=== PATIENT | female | born 1995 | race Caucasian/White ===

== ENCOUNTER → 2017-01-19 | Emergency (ER) | payer OTHER ==
[~2017-01-19] VITALS: Ht 149.9 cm; Wt 38.6 kg
[~2017-01-19] MED LIST: DEXAMETHASONE PF 10 MG/ML (DECADRON) VIAL IM STA; DOXY100T19 PO; HYDR-3812 PO; PNV1COMB25 PO
--- NOTE | 2017-01-19 06:59 | ED EENT ---
History of Present Illness General Chief Complaint: Oral/Throat Problems Stated Complaint: SWOLLEN & SORE THROAT,COUGHING, Nursing Triage Note: Pt c/o sore throat, afebrile. Source: patient Exam Limitations: no limitations History of Present Illness Time seen by provider: 06:30 Initial Comments Here with report of sore throat for the last 3 days and much worse this morning. She states she woke up this morning and it was hurting real bad. Her doctor's office is not open on the weekends and she came here because she was concerned about strep throat. Denies fevers or vomiting. Denies breathing problems. Pain worse with swallowing. Timing/Duration: gradual Severity: moderate Location: throat Prearrival Treatment: no prearrival treatment Associated Symptoms: No cough, No fever, nasal congestion/drainage, sore throat Allergies and Home Medications Allergies Coded Allergies: Penicillins (Verified Allergy, Unknown, 03/11/16) Home Medications Doxycycline Monohydrate 100 Mg Tablet, 100 MG PO BID, #14 Prescribed by: DARLYN SEN on 03/11/16 2303 Hydrocodone/Acetaminophen 1 Each Tablet, 1 TAB PO Q6 PRN, #20 Prescribed by: DELIA NETTLES on 09/03/16 1431 Pnv #116/Iron Fumarate/FA/Dha 1 Each Combo..pkg, 1 EACH PO UD, (Reported) Review of Systems Constitutional: see HPI, No chills, No fever Eyes: No Symptoms Reported Ears: No Symptoms Reported Nose: congestion, denies pain Mouth: no symptoms reported Throat: denies neck stiffness, denies aphonia, denies muffled, painful swallowing Respiratory: short of breath Gastrointestinal: No nausea, No vomiting Past [id number]-[id number]-Yqjxyh Hx Patient Social History Alcohol Use: Denies Use Recreational Drug Use: No Smoking Status: Current Everyday Smoker Type Used: Cigarettes 2nd Hand Smoke Exposure: No Recent Foreign Travel: No Contact w/Someone Who Travel: No Recent Infectious Disease Expo: No Recent Hopitalizations: No Immunizations Up To Date Tetanus Booster (TDap): Less than 5yrs PED Vaccines UTD: Yes Seasonal Allergies Seasonal Allergies: No Surgeries HX Surgeries: Yes (d&c) Surgeries: Appendectomy Respiratory Hx Respiratory Disorders: Yes (chronic shortness of air) Cardiovascular Hx Cardiac Disorders: Yes Cardiac Disorders: Heart Murmur Neurological Hx Neurological Disorders: Yes Neurological Disorders: Headaches /Migraines Reproductive System Hx Reproductive Disorders: Yes ( delivery with retained products requiring D&C) Genitourinary Hx Genitourinary Disorders: No Gastrointestinal Hx Gastrointestinal Disorders: No Musculoskeletal Hx Musculoskeletal Disorders: No Endocrine Hx Endocrine Disorders: No HEENT HX ENT Disorders: No Cancer Hx Cancer: No Psychosocial Hx Psychiatric Problems: No Integumentary HX Skin/Integumentary Disorder: Yes (recurrent pruritic rash) Blood Transfusions Hx Blood Disorders: No Adverse Reaction to a Blood Tr: No Reviewed Nursing Assessment Reviewed/Agree w Nursing PMH: Yes Family Medical History Significant Family History: Heart Disease Physical Exam Vital Signs Vital Sign - Last 12Hours 01/19/17 06:30 Temp 97.6 Pulse 85 Resp 18 B/P (MAP) 107/76 Pulse Ox 97 O2 Delivery Room Air General Appearance: WD/WN, no apparent distress Eyes: bilateral eye EOMI, bilateral eye PERRL, bilateral eye normal inspection Ears: bilateral ear TM normal, bilateral ear auricle normal, bilateral ear canal normal Nose: other (mild bilateral nasal congestion with clear rhinorrhea) Mouth/Throat: pharynx tenderness, No uvula swelling Neck: full range of motion, supple, lymphadenopathy (R), lymphadenopathy (L) Cardiovascular: regular rate, rhythm, no murmur Respiratory: lungs clear, normal breath sounds Neurologic/Psychiatric: alert, oriented x 3 Progress/Results/Core Measures Results/Orders Lab Results Laboratory Tests Test 01/19/17 06:38 Range/Units My Orders Orders - RADHA RODRIGUEZ MD Rapid Strep A Screen (01/19/17 06:37) Dexamethasone Pf Injection (Decadron Pf (01/19/17 06:40) Vital Signs/I&O Vital Sign - Last 12Hours 01/19/17 06:30 Temp 97.6 Pulse 85 Resp 18 B/P (MAP) 107/76 Pulse Ox 97 O2 Delivery Room Air Blood Pressure Mean: 86 Progress Note : Progress Note Seen and evaluated. Rapid strep ordered. Decadron 10 mg IM. Discharged home with return precautions. Patient verbalize understanding instructions and agreement with plan. Departure Impression Impression: Primary Impression: Acute viral pharyngitis Disposition: 01 HOME, SELF-CARE Condition: Improved Departure-Patient Inst. Decision time for Depature: 07:04 Referrals: NO,LOCAL PHYSICIAN (PCP/Family) Primary Care Physician Patient Instructions: Viral Pharyngitis (DC) Add. Discharge Instructions: All discharge instructions reviewed with patient and/or family. Voiced understanding. You may take ibuprofen 400 mg every 6 hours as needed for pain. You may take Tylenol or the generic acetaminophen 500 mg every 6 hours as needed for pain. You may use Afrin nasal spray or the generic, 12 hour relief, 2 sprays to each nostril twice daily for 3 days only and then stop. Do not use more than 3 days. Drink plenty of fluids. Return for worse pain, fever, vomiting, breathing problems, swallowing problems or other concerns as needed. RADHA RODRIGUEZ MD Jan 19, 2017 06:59
[2017-01-19 07:10] VITALS: BP 119/75
--- OUTSIDE RECORDS SUMMARY | 2017-02-24 04:41 | XMS REPORT | Continuity of Care Document ---
Author Author [facility] Organization [facility] Address Unknown Phone Unavailable Allergies Active Description Code Type Severity Reaction Onset Reported/Identified Relationship to Patient Clinical Status Yes Penicillins [id number] Drug Allergy Unknown N/A 03/11/2016 Medications Problems Date Dx Coded Attending Type Code Diagnosis Diagnosed By 03/11/2016 DARLYN SEN MD Ot F17.210 NICOTINE DEPENDENCE, CIGARETTES, UNCOMPL 03/11/2016 DARLYN SEN MD Ot J20.9 ACUTE BRONCHITIS, UNSPECIFIED 03/13/2016 DARLYN SEN MD Ot F17.210 NICOTINE DEPENDENCE, CIGARETTES, UNCOMPL 03/13/2016 DARLYN SEN MD Ot J20.9 ACUTE BRONCHITIS, UNSPECIFIED 09/03/2016 DELMAN DO, DELIA B Ot F17.210 NICOTINE DEPENDENCE, CIGARETTES, UNCOMPL 09/03/2016 DELMAN DO, DELIA B Ot K35.80 UNSPECIFIED ACUTE APPENDICITIS 09/04/2016 DELMAN DO, DELIA B Ot F17.210 NICOTINE DEPENDENCE, CIGARETTES, UNCOMPL 09/04/2016 DELMAN DO, DELIA B Ot K35.80 UNSPECIFIED ACUTE APPENDICITIS 09/05/2016 DELMAN DO, DELIA B Ot F17.210 NICOTINE DEPENDENCE, CIGARETTES, UNCOMPL 09/05/2016 DELMAN DO, DELIA B Ot K35.80 UNSPECIFIED ACUTE APPENDICITIS 09/15/2016 DELMAN DO, DELIA B Ot F17.210 NICOTINE DEPENDENCE, CIGARETTES, UNCOMPL 09/15/2016 DELMAN DO, DELIA B Ot K35.80 UNSPECIFIED ACUTE APPENDICITIS 09/19/2016 DELMAN DO, DELIA B Ot F17.210 NICOTINE DEPENDENCE, CIGARETTES, UNCOMPL 09/19/2016 DELMAN DO, DELIA B Ot K35.80 UNSPECIFIED ACUTE APPENDICITIS 01/21/2017 RADHA RODRIGUEZ MD Ot F17.210 NICOTINE DEPENDENCE, CIGARETTES, UNCOMPL 01/21/2017 RADHA RODRIGUEZ MD Ot J02.8 ACUTE PHARYNGITIS DUE TO OTHER SPECIFIED 01/21/2017 RADHA RODRIGUEZ MD Ot J02.9 ACUTE PHARYNGITIS, UNSPECIFIED 01/21/2017 RADHA RODRIGUEZ MD Ot R05 COUGH 02/08/2017 RADHA RODRIGUEZ MD Ot F17.210 NICOTINE DEPENDENCE, CIGARETTES, UNCOMPL 02/08/2017 RADHA RODRIGUEZ MD Ot J02.8 ACUTE PHARYNGITIS DUE TO OTHER SPECIFIED 02/08/2017 RADHA RODRIGUEZ MD Ot J02.9 ACUTE PHARYNGITIS, UNSPECIFIED 02/08/2017 RADHA RODRIGUEZ MD Ot R05 COUGH Procedures Results Test Result Range Complete urinalysis with reflex to culture - 09/03/16 09:54 Urine color determination YELLOW NRG Urine clarity determination CLEAR NRG Urine pH measurement by test strip 7 5- 9 Specific gravity of urine by test strip 1.015 1.016-1.022 Urine protein assay by test strip, semi-quantitative NEGATIVE NEGATIVE Urine glucose detection by automated test strip NEGATIVE NEGATIVE Erythrocytes detection in urine sediment by light microscopy NEGATIVE NEGATIVE Urine ketones detection by automated test strip NEGATIVE NEGATIVE Urine nitrite detection by test strip NEGATIVE NEGATIVE Urine total bilirubin detection by test strip NEGATIVE NEGATIVE Urine urobilinogen measurement by automated test strip (mass/volume) NORMAL NORMAL Urine leukocyte esterase detection by dipstick NEGATIVE NEGATIVE Automated urine sediment erythrocyte count by microscopy (number/high power field) NONE NRG Automated urine sediment leukocyte count by microscopy (number/high power field ) RARE NRG Bacteria detection in urine sediment by light microscopy NEGATIVE NRG Squamous epithelial cells detection in urine sediment by light microscopy 10-25 NRG Crystals detection in urine sediment by light microscopy NONE NRG Casts detection in urine sediment by light microscopy NONE NRG Mucus detection in urine sediment by light microscopy SMALL NRG Complete urinalysis with reflex to culture NO NRG Complete blood count (CBC) with automated white blood cell (WBC) differential - 09/03/16 10:20 Blood leukocytes automated count (number/volume) 13.9 10*3/ uL 4.3-11.0 Blood erythrocytes automated count (number/volume) 4.35 10*6 /uL 4.35-5.85 Venous blood hemoglobin measurement (mass/volume) 13.9 g/dL 11.5-16.0 Blood hematocrit (volume fraction) 41 % 35-52 Automated erythrocyte mean corpuscular volume 95 [foz_us] 80-99 Automated erythrocyte mean corpuscular hemoglobin (mass per erythrocyte) 32 pg 25-34 Automated erythrocyte mean corpuscular hemoglobin concentration measurement ( mass/volume) 34 g/dL 32-36 Automated erythrocyte distribution width ratio 13.2 % 10.0-14.5 Automated blood platelet count (count/volume) 309 10*3/uL 130-400 Automated blood platelet mean volume measurement 9.8 [foz_us ] 7.4-10.4 Automated blood neutrophils/100 leukocytes 78 % 42-75 Automated blood lymphocytes/100 leukocytes 13 % 12-44 Blood monocytes/100 leukocytes 8 % 0-12 Automated blood eosinophils/100 leukocytes 1 % 0-10 Automated blood basophils/100 leukocytes 0 % 0-10 Blood neutrophils automated count (number/volume) 10.8 10*3 1.8-7.8 Blood lymphocytes automated count (number/volume) 1.7 10*3 1.0-4.0 Blood monocytes automated count (number/volume) 1.2 10*3 0.0-1.0 Automated eosinophil count 0.2 10*3/uL 0.0-0.3 Automated blood basophil count (count/volume) 0.0 10*3/uL 0.0-0.1 Serum or plasma choriogonadotropin ( test) detection - 09/03/16 10:20 Serum or plasma choriogonadotropin ( test) detection NEGATIVE NEGATIVE Comprehensive metabolic panel - 09/03/16 10:20 Serum or plasma sodium measurement (moles/volume) 140 mmol/ L 135-145 Serum or plasma potassium measurement (moles/volume) 4.2 mmol/L 3.6-5.0 Serum or plasma chloride measurement (moles/volume) 107 mmol /L 98-107 Carbon dioxide 24 mmol/L 21-32 Serum or plasma anion gap determination (moles/volume) 9 mmol/L 5-14 Serum or plasma urea nitrogen measurement (mass/volume) 15 mg/dL 7-18 Serum or plasma creatinine measurement (mass/volume) 0.70 mg /dL 0.60-1.30 Serum or plasma urea nitrogen/creatinine mass ratio 21 NRG Serum or plasma creatinine measurement with calculation of estimated glomerular filtration rate > NRG Serum or plasma glucose measurement (mass/volume) 90 mg/dL 70-105 Serum or plasma calcium measurement (mass/volume) 9.3 mg/dL 8.5-10.1 Serum or plasma total bilirubin measurement (mass/volume) 0.4 mg/dL 0.1-1.0 Serum or plasma alkaline phosphatase measurement (enzymatic activity/volume) 67 U/L 40-136 Serum or plasma aspartate aminotransferase measurement (enzymatic activity/ volume) 12 U/L 5-34 Serum or plasma alanine aminotransferase measurement (enzymatic activity/volume ) 11 U/L 0-55 Serum or plasma protein measurement (mass/volume) 7.2 g/dL 6.4-8.2 Serum or plasma albumin measurement (mass/volume) 4.7 g/dL 3.2-4.5 Lipase - 09/03/16 10:20 Lipase 6 U/L 8-78 Streptococcus pyogenes antigen detection - 01/19/17 06:38 Streptococcus pyogenes antigen detection NEGATIVE NEGATIVE Bacterial throat culture - 01/19/17 06:38 Bacterial throat culture NBS NRG Encounters ACCT No. Visit Date/Time Discharge Status Pt. Type Provider Facility Loc./Unit Complaint [id number] 09/03/2016 11:39:00 2015 17:10:00 DIS Outpatient DELIA NETTLES DO [facility] LAPRASCOPIC APPENDECTOMY WITH POSSIBILITY OF OPEN [id number] 03/11/2016 22:41:00 2015 23:28:00 DIS Emergency DARLYN SEN MD [facility] ER [id number] 01/19/2017 06:14:00 ACT Emergency RADHA RODRIGUEZ MD [facility] ER SWOLLEN SORE THROAT,COUGHING,
== END | disposition home or self-care (01) ==
LOC: EDUNIT# 06:11 → ER 06:14
DX: J02.8 Acute pharyngitis due to other specified organisms (principal); R05 Cough; F17.210 Nicotine dependence, cigarettes, uncomplicated
CPT/HCPCS: 87430; 96372; 99282